=== PATIENT | male | born 1990 | race Caucasian/White ===

== ENCOUNTER 2022-05-13 13:59 | Emergency (ER) | payer SELFPAY | END 2022-05-13 16:35 | disposition home or self-care (01) | LOC: MW.ED 13:59 | DX: T81.89XA Other complications of procedures, not elsewhere classified, initial encounter (principal); Z79.899 Other long term (current) drug therapy; Z88.1 Allergy status to other antibiotic agents | CPT/HCPCS: 99283 ==

== ENCOUNTER 2022-08-23 23:13 | Emergency (ER) | payer OTHER, SELFPAY | END 2022-08-24 00:29 | LOC: MW.ED 23:13 | DX: Z02.89 Encounter for other administrative examinations (principal); Z88.1 Allergy status to other antibiotic agents; Z79.899 Other long term (current) drug therapy | CPT/HCPCS: 99283 ==

== ENCOUNTER 2024-01-30 00:30 | Emergency (ER) | payer MEDICAID ==
[2024-01-30] MEDS: Sodium Chloride 0.9% 1,000 ML IV ONE (00:50)
[2024-01-30 00:54] LABS: BASOPHILS ABSOLUTE AUTO 0.02 K/uL (0.00-0.20); BASOPHILS PERCENT AUTO 0.2 % (0.0-1.0); EOSINOPHILS ABSOLUTE AUTO 0.03 K/uL (0.00-0.45); EOSINOPHILS PERCENT AUTO 0.3 % (0.0-6.0); HEMATOCRIT 38.5 % (42.0-52.0); HEMOGLOBIN 13.4 g/dL (14.0-18.0); IMMATURE GRAN ABSOLUTE AUTO 0.02 K/uL (0.00-0.05); IMMATURE GRAN PERCENT AUTO 0.2 % (0.0-0.4); LYMPHOCYTES ABSOLUTE AUTO 1.75 K/uL (1.00-4.80); LYMPHOCYTES PERCENT AUTO 19.5 % (24.0-44.0); MEAN CORPUSCULAR HEMOGLOBIN 28.5 pg (28.0-32.0); MEAN CORPUSCULAR HGB CONC 34.8 g/dL (32.0-36.0); MEAN CORPUSCULAR VOLUME 81.9 fL (83.0-99.0); MEAN PLATELET VOLUME 8.7 fL (9.4-12.4); MONOCYTES ABSOLUTE AUTO 0.56 K/uL (0.00-0.80); MONOCYTES PERCENT AUTO 6.2 % (0.0-8.0); NEUTROPHILS ABSOLUTE AUTO 6.59 K/uL (1.80-7.70); NEUTROPHILS PERCENT AUTO 73.6 % (41.0-71.0); PLATELET COUNT,PLT 241 K/uL (150-400); WHITE BLOOD CELL COUNT,WBC 8.97 K/uL (3.9-11.3)
[2024-01-30 01:07] LABS: INR 0.98 (0.86-1.11); PTT,PARTIAL THROMBOPLSTIN TIME 30.7 SEC (23.9-30.7)
[2024-01-30 01:26] LABS: ACETAMINOPHEN < 2.0 ug/mL; ALANINE AMINOTRANSFERASE,ALT 81 IU/L (14-63); ALBUMIN 3.4 g/dL (3.4-5.0); ALKALINE PHOSPHATASE 107 U/L (46-116); ASPARTATE AMNIOTRANSFERASE,AST 74 IU/L (15-37); BILIRUBIN TOTAL 1.3 mg/dL (0.2-1.0); BLOOD UREA NITROGEN,BUN 12 mg/dL (7.0-18.0); CALCIUM 8.7 mg/dL (8.5-10.1); CARBON DIOXIDE,CO2 27.9 mmol/L (21.0-32.0); CHLORIDE,CL 99 mmol/L (98-107); CREATININE 0.9 mg/dL (0.8-1.3); EST CRCL DRUG DOSING (CG) 122.79 mL/min; ETHANOL BLOOD MEDICAL <3 mg/dL; GLUCOSE RANDOM 121 mg/dL (74-106); LIPASE 49 U/L (16-77); MAGNESIUM 1.8 mg/dL (1.8-2.4); POTASSIUM,K 3.3 mmol/L (3.5-5.1); PROTEIN TOTAL,TP 6.8 g/dL (6.4-8.2); SALICYLATE <0.2 mg/dL (0.0-20.0); SODIUM,NA 137 mmol/L (136-148); TSH ULTRASENSITIVE 2.81 uIU/mL (0.36-3.74)
[2024-01-30 01:38] LABS: ESTIMATED GFR 117 mL/min (>60)
[2024-01-30] MEDS ORDERED: Acetylcysteine 5,000 MG in Dextrose 5% in Water 500 ML IV ONE (01:43)
[2024-01-30 02:09] LABS: BILIRUBIN,URINE NEGATIVE (NEGATIVE); GLUCOSE,URINE NEGATIVE (NEGATIVE); KETONES,URINE TRACE mg/dL (NEGATIVE); LEUKOCYTE ESTERASE,URINE NEGATIVE (NEGATIVE); NITRITE,URINE NEGATIVE (NEGATIVE); OCCULT BLOOD,URINE NEGATIVE (NEGATIVE); PH,URINE 6.5 (5.0-8.0); PROTEIN,URINE NEGATIVE (NEGATIVE); UROBILINOGEN,URINE 0.2 EU/dL (<2.0)
[2024-01-30] MEDS: Acetylcysteine 15,000 MG in Dextrose 5% in Water 200 ML IV STA ×2 (02:12→02:57)
[2024-01-30 02:14] LABS: APPEARANCE,URINE CLEAR; COLOR,URINE DARK YELLOW
[2024-01-30 02:19] LABS: AMPHETAMINES SCREEN, URINE NEGATIVE (CUTOFF=500); BARBITURATE SCREEN,URINE NEGATIVE (CUTOFF=200); BENZODIAZEPINES SCREEN,URINE NEGATIVE (CUTOFF=150); BUPRENORPHINE SCREEN,URINE NEGATIVE (CUTOFF=10); METHADONE SCREEN, URINE NEGATIVE (CUTOFF=200); METHAMPHETAMINES SCREEN, URINE NEGATIVE (CUTOFF=500); OXYCODONE SCREEN,URINE PRESUMPTIVE POSITIVE (CUT0FF=100); PCP SCREEN,URINE NEGATIVE (CUTOFF=25); THC SCREEN,URINE 20 NG/ML PRESUMPTIVE POSITIVE (CUTOFF=50)
[2024-01-30] MEDS: Acetylcysteine 5,000 MG in Dextrose 5% in Water 500 ML IV ONE (03:24)
[2024-01-30] MEDS: Diazepam 5 MG Tab PO ONE (05:50)
[2024-01-30 06:22] LABS: INR 1.09 (0.86-1.11); PTT,PARTIAL THROMBOPLSTIN TIME 30.1 SEC (23.9-30.7)
[2024-01-30 06:33] LABS: A/G RATIO 0.9 (0.9-1.6); ACETAMINOPHEN < 2.0 ug/mL; ALANINE AMINOTRANSFERASE,ALT 83 IU/L (14-63); ALBUMIN 2.9 g/dL (3.4-5.0); ALKALINE PHOSPHATASE 91 U/L (46-116); ASPARTATE AMNIOTRANSFERASE,AST 62 IU/L (15-37); BILIRUBIN TOTAL 1.2 mg/dL (0.2-1.0); BLOOD UREA NITROGEN,BUN 9 mg/dL (7.0-18.0); CALCIUM 8.1 mg/dL (8.5-10.1); CARBON DIOXIDE,CO2 29.6 mmol/L (21.0-32.0); CHLORIDE,CL 101 mmol/L (98-107); CREATININE 0.9 mg/dL (0.8-1.3); EST CRCL DRUG DOSING (CG) 122.79 mL/min; ESTIMATED GFR 117 mL/min (>60); GLUCOSE RANDOM 118 mg/dL (74-106); POTASSIUM,K 3.4 mmol/L (3.5-5.1); PROTEIN TOTAL,TP 6.3 g/dL (6.4-8.2); SALICYLATE <0.2 mg/dL (0.0-20.0); SODIUM,NA 142 mmol/L (136-148)
== END 2024-01-30 06:55 | disposition home or self-care (01) ==
LOC: MW.ED 00:30
DX: T39.1X1A Poisoning by 4-Aminophenol derivatives, accidental (unintentional), initial encounter (principal); F10.230 Alcohol dependence with withdrawal, uncomplicated; I10 Essential (primary) hypertension; Z88.1 Allergy status to other antibiotic agents; Z75.8 Other problems related to medical facilities and other health care
CPT/HCPCS: 36415; 80053; 80143; 80179; 80305; 80307; 81003; 83690; 83735; 84443; 85025; 85610; 85730; 93005; 96361; 96365; 96366; 96375; 96376; 99284; A9270; J0132; J3360; J7030; J7060; 93010

== ENCOUNTER 2024-02-18 17:35 | Emergency (ER) | payer MEDICAID ==
[2024-02-18] MEDS: Ondansetron 4 MG/2 ML SDV IVPUSH STA (17:55)
[2024-02-18] MEDS: Sodium Chloride 0.9% 2.5 ML Syringe FLUSH PRN (17:55)
[2024-02-18] MEDS: Sodium Chloride 0.9% 1,000 ML IV STA ×2 (17:55→19:42)
[2024-02-18] MEDS: Sodium Chloride 0.9% 10 ML Syringe FLUSH PRN (17:55)
[2024-02-18 17:57] LABS: BASOPHILS ABSOLUTE AUTO 0.02 K/uL (0.00-0.20); BASOPHILS PERCENT AUTO 0.3 % (0.0-1.0); EOSINOPHILS ABSOLUTE AUTO 0.09 K/uL (0.00-0.45); EOSINOPHILS PERCENT AUTO 1.6 % (0.0-6.0); HEMATOCRIT 47.1 % (42.0-52.0); HEMOGLOBIN 16.4 g/dL (14.0-18.0); IMMATURE GRAN ABSOLUTE AUTO 0.01 K/uL (0.00-0.05); IMMATURE GRAN PERCENT AUTO 0.2 % (0.0-0.4); LYMPHOCYTES ABSOLUTE AUTO 2.17 K/uL (1.00-4.80); LYMPHOCYTES PERCENT AUTO 37.4 % (24.0-44.0); MEAN CORPUSCULAR HEMOGLOBIN 28.4 pg (28.0-32.0); MEAN CORPUSCULAR HGB CONC 34.8 g/dL (32.0-36.0); MEAN CORPUSCULAR VOLUME 81.6 fL (83.0-99.0); MEAN PLATELET VOLUME 8.3 fL (9.4-12.4); MONOCYTES ABSOLUTE AUTO 0.84 K/uL (0.00-0.80); MONOCYTES PERCENT AUTO 14.5 % (0.0-8.0); NEUTROPHILS ABSOLUTE AUTO 2.67 K/uL (1.80-7.70); PLATELET COUNT,PLT 351 K/uL (150-400); RED BLOOD CELL COUNT 5.77 M/uL (4.52-5.90)
[2024-02-18 18:12] LABS: INR 1.02 (0.86-1.11); PTT,PARTIAL THROMBOPLSTIN TIME 27.8 SEC (23.9-30.7)
[2024-02-18 18:21] LABS: MAGNESIUM 2.1 mg/dL (1.8-2.4)
[2024-02-18 18:26] LABS: A/G RATIO 0.9 (0.9-1.6); ALBUMIN 3.6 g/dL (3.4-5.0); BILIRUBIN TOTAL 0.6 mg/dL (0.2-1.0); CALCIUM 8.2 mg/dL (8.5-10.1); CREATININE 1.1 mg/dL (0.8-1.3); EST CRCL DRUG DOSING (CG) 100.47 mL/min; POTASSIUM,K 4.4 mmol/L (3.5-5.1); PROTEIN TOTAL,TP 7.5 g/dL (6.4-8.2)
[2024-02-18] MEDS: LORazepam 1 MG Tab PO STA (18:52)
[2024-02-18 19:15] LABS: APPEARANCE,URINE HAZY; BILIRUBIN,URINE NEGATIVE (NEGATIVE); COLOR,URINE YELLOW; GLUCOSE,URINE NEGATIVE (NEGATIVE); KETONES,URINE 15 mg/dL (NEGATIVE); LEUKOCYTE ESTERASE,URINE NEGATIVE (NEGATIVE); NITRITE,URINE NEGATIVE (NEGATIVE); OCCULT BLOOD,URINE SMALL (NEGATIVE); PROTEIN,URINE 100 mg/dL (NEGATIVE)
[2024-02-18 19:21] LABS: BACTERIA,URINE FEW (NEGATIVE); EPITHELIAL CELLS,URINE NOT SEEN (NONE-FEW); MUCUS,URINE LIGHT (NONE-MOD); WBC,URINE 0-1 (0-5/HPF)
[2024-02-18 19:29] LABS: AMPHETAMINES SCREEN, URINE NEGATIVE (CUTOFF=500); BARBITURATE SCREEN,URINE NEGATIVE (CUTOFF=200); BENZODIAZEPINES SCREEN,URINE PRESUMPTIVE POSITIVE (CUTOFF=150); BUPRENORPHINE SCREEN,URINE NEGATIVE (CUTOFF=10); METHADONE SCREEN, URINE NEGATIVE (CUTOFF=200); METHAMPHETAMINES SCREEN, URINE NEGATIVE (CUTOFF=500); OXYCODONE SCREEN,URINE NEGATIVE (CUT0FF=100); PCP SCREEN,URINE NEGATIVE (CUTOFF=25); THC SCREEN,URINE 20 NG/ML PRESUMPTIVE POSITIVE (CUTOFF=50)
[2024-02-18] MEDS: Diazepam 2 MG Tab PO STA (20:19)
== END 2024-02-18 21:32 | disposition home or self-care (01) ==
LOC: MW.ED 17:35
DX: F10.139 Alcohol abuse with withdrawal, unspecified (principal); I10 Essential (primary) hypertension; Z75.8 Other problems related to medical facilities and other health care; Z88.1 Allergy status to other antibiotic agents; Z88.8 Allergy status to other drugs, medicaments and biological substances; Z79.899 Other long term (current) drug therapy; Z86.16 Personal history of COVID-19; Z87.891 Personal history of nicotine dependence
CPT/HCPCS: 36415; 80053; 80305; 80307; 81001; 83690; 83735; 85025; 85610; 85730; 96361; 96374; 99284; A9270; J2405; J3490; J7030

== ENCOUNTER 2024-02-23 22:26 | Emergency (ER) | payer MEDICAID | END 2024-02-23 23:27 | LOC: MW.ED 22:26 | DX: I10 Essential (primary) hypertension (principal); Z86.16 Personal history of COVID-19; Z79.899 Other long term (current) drug therapy; Z88.1 Allergy status to other antibiotic agents; Z75.8 Other problems related to medical facilities and other health care | CPT/HCPCS: 99283 ==

== ENCOUNTER 2024-04-11 16:02 | Emergency (ER) | payer MEDICAID ==
[2024-04-11] MEDS: Diphtheria,Pertussis(Acell),Tetanus Vaccine 0.5 ML Syringe IM ONE (16:27)
[2024-04-11] MEDS: Sodium Chloride 0.9% 1,000 ML IV ONE (16:39)
[2024-04-11] MEDS: LORazepam 2 MG/ML SDV IVPUSH ONE (16:48)
[2024-04-11 16:55] LABS: BASOPHILS ABSOLUTE AUTO 0.02 K/uL (0.00-0.20); BASOPHILS PERCENT AUTO 0.4 % (0.0-1.0); EOSINOPHILS ABSOLUTE AUTO 0.05 K/uL (0.00-0.45); EOSINOPHILS PERCENT AUTO 0.9 % (0.0-6.0); HEMOGLOBIN 13.5 g/dL (14.0-18.0); IMMATURE GRAN ABSOLUTE AUTO 0.01 K/uL (0.00-0.05); IMMATURE GRAN PERCENT AUTO 0.2 % (0.0-0.4); LYMPHOCYTES ABSOLUTE AUTO 1.46 K/uL (1.00-4.80); LYMPHOCYTES PERCENT AUTO 25.6 % (24.0-44.0); MEAN CORPUSCULAR HEMOGLOBIN 29.3 pg (28.0-32.0); MEAN CORPUSCULAR HGB CONC 34.6 g/dL (32.0-36.0); MEAN CORPUSCULAR VOLUME 84.8 fL (83.0-99.0); MEAN PLATELET VOLUME 9.2 fL (9.4-12.4); MONOCYTES ABSOLUTE AUTO 0.57 K/uL (0.00-0.80); NEUTROPHILS PERCENT AUTO 62.9 % (41.0-71.0); PLATELET COUNT,PLT 296 K/uL (150-400); WHITE BLOOD CELL COUNT,WBC 5.71 K/uL (3.9-11.3)
[2024-04-11 17:29] LABS: A/G RATIO 1.2 (0.9-1.6); ALBUMIN 3.8 g/dL (3.4-5.0); BILIRUBIN TOTAL 0.3 mg/dL (0.2-1.0); CALCIUM 9.1 mg/dL (8.5-10.1); CARBON DIOXIDE,CO2 23.8 mmol/L (21.0-32.0); EST CRCL DRUG DOSING (CG) 110.51 mL/min; POTASSIUM,K 3.3 mmol/L (3.5-5.1); PROTEIN TOTAL,TP 7.1 g/dL (6.4-8.2)
[2024-04-11 17:49] LABS: LACTIC ACID 1.7 mmol/L (0.4-2.0)
== END 2024-04-11 18:22 | disposition home or self-care (01) ==
LOC: MW.ED 16:02
DX: L03.114 Cellulitis of left upper limb (principal); F10.239 Alcohol dependence with withdrawal, unspecified; I10 Essential (primary) hypertension; Z79.899 Other long term (current) drug therapy; Z75.8 Other problems related to medical facilities and other health care; Z88.1 Allergy status to other antibiotic agents; Z23 Encounter for immunization
CPT/HCPCS: 36415; 73090; 80053; 83605; 85025; 87040; 90471; 90715; 96361; 96374; 99285; J2060; J7030; 99284

== ENCOUNTER 2024-05-04 10:04 | Inpatient (IN) | payer MEDICAID ==
[2024-05-04] MEDS: PHENobarbitaL sodium 260 MG in Sodium Chloride 0.9% 100 ML IV ONE (10:32)
[2024-05-04 10:34] LABS: BASOPHILS ABSOLUTE AUTO 0.02 K/uL (0.00-0.20); BASOPHILS PERCENT AUTO 0.2 % (0.0-1.0); EOSINOPHILS ABSOLUTE AUTO 0.01 K/uL (0.00-0.45); EOSINOPHILS PERCENT AUTO 0.1 % (0.0-6.0); HEMATOCRIT 43.1 % (42.0-52.0); HEMOGLOBIN 15.1 g/dL (14.0-18.0); IMMATURE GRAN ABSOLUTE AUTO 0.03 K/uL (0.00-0.05); IMMATURE GRAN PERCENT AUTO 0.4 % (0.0-0.4); LYMPHOCYTES ABSOLUTE AUTO 0.96 K/uL (1.00-4.80); LYMPHOCYTES PERCENT AUTO 11.8 % (24.0-44.0); MEAN CORPUSCULAR HEMOGLOBIN 28.8 pg (28.0-32.0); MEAN CORPUSCULAR VOLUME 82.1 fL (83.0-99.0); MONOCYTES ABSOLUTE AUTO 0.23 K/uL (0.00-0.80); MONOCYTES PERCENT AUTO 2.8 % (0.0-8.0); NEUTROPHILS ABSOLUTE AUTO 6.87 K/uL (1.80-7.70); NEUTROPHILS PERCENT AUTO 84.7 % (41.0-71.0); PLATELET COUNT,PLT 360 K/uL (150-400); RED BLOOD CELL COUNT 5.25 M/uL (4.52-5.90); WHITE BLOOD CELL COUNT,WBC 8.12 K/uL (3.9-11.3)
[2024-05-04] MEDS: Sodium Chloride 0.9% 1,000 ML IV ONE ×2 (10:47→12:03)
[2024-05-04] MEDS: Sodium Chloride 0.9% 10 ML Syringe FLUSH PRN (10:49)
[2024-05-04] MEDS: Sodium Chloride 0.9% 2.5 ML Syringe FLUSH PRN (10:49)
[2024-05-04 10:50] LABS: INR 1.01 (0.86-1.11)
[2024-05-04 11:08] LABS: A/G RATIO 1.2 (0.9-1.6); ALANINE AMINOTRANSFERASE,ALT 72 IU/L (14-63); ALBUMIN 4.2 g/dL (3.4-5.0); ALKALINE PHOSPHATASE 121 U/L (46-116); ASPARTATE AMNIOTRANSFERASE,AST 77 IU/L (15-37); BLOOD UREA NITROGEN,BUN 12 mg/dL (7.0-18.0); CALCIUM 9.2 mg/dL (8.5-10.1); CARBON DIOXIDE,CO2 15.1 mmol/L (21.0-32.0); CHLORIDE,CL 94 mmol/L (98-107); CREATININE 1.7 mg/dL (0.8-1.3); EST CRCL DRUG DOSING (CG) 65.01 mL/min; GLUCOSE RANDOM 344 mg/dL (74-106); POTASSIUM,K 3.5 mmol/L (3.5-5.1); PROTEIN TOTAL,TP 7.8 g/dL (6.4-8.2); SODIUM,NA 130 mmol/L (136-148); TSH ULTRASENSITIVE 0.87 uIU/mL (0.36-3.74)
[2024-05-04 11:10] LABS: ESTIMATED GFR 55 mL/min (>60); ETHANOL BLOOD MEDICAL < 3.0 mg/dL
[2024-05-04] MEDS ORDERED: PHENobarbitaL sodium 130 MG in Sodium Chloride 0.9% 100 ML IV ONE (11:47)
[2024-05-04] MEDS: PHENobarbital Sodium 130 MG/ML SDV IVPUSH PRN (12:09)
[2024-05-04] MEDS ORDERED: Ondansetron 4 MG Tab.DIS PO PRN (13:06)
[2024-05-04] MEDS ORDERED: PHENobarbital 32.4 MG Tab PO PRN ×2 (13:17)
[2024-05-04] MEDS ORDERED: PHENobarbital Sodium 130 MG/ML SDV IVPUSH PRN (13:21)
[2024-05-04] MEDS: Lisinopril 10 MG Tab PO ONE (13:31)
[2024-05-04] MEDS: Non-Formulary Medication 1 Each (Lisinopril [Lisinopril] 40 MG Tablet) PO SCH (13:36)
[2024-05-04] MEDS: PHENobarbitaL sodium 130 MG in Sodium Chloride 0.9% 100 ML IV ONE (13:36)
[2024-05-04 14:09] LABS: MAGNESIUM 2.7 mg/dL (1.8-2.4); PHOSPHORUS 2.1 mg/dL (2.6-4.7)
[2024-05-04] MEDS: Folic Acid 1 MG Tab PO SCH (14:16)
[2024-05-04] MEDS: Sodium Chloride 0.9% 1,000 ML IV SCH (14:16)
[2024-05-04] MEDS: Acetaminophen 325 MG Tab PO PRN (14:17)
[2024-05-04] MEDS: PHENobarbital 32.4 MG Tab PO PRN (15:28)
[2024-05-04] MEDS ORDERED: Metoprolol Tartrate 5 MG/5 ML SDV IVPUSH PRN (15:40)
[2024-05-04] MEDS: Heparin Sodium 5,000 Units/ML Vial SUBCUT SCH (16:02)
[2024-05-04] MEDS: Labetalol 100 MG/20 ML MDV IVPUSH PRN (17:04)
[2024-05-04] MEDS: Phosphorus #1 250 MG Tab PO SCH (17:49)
[2024-05-04 18:04] LABS: AMPHETAMINES SCREEN, URINE NEGATIVE (CUTOFF=500); BARBITURATE SCREEN,URINE PRESUMPTIVE POSITIVE (CUTOFF=200); BENZODIAZEPINES SCREEN,URINE PRESUMPTIVE POSITIVE (CUTOFF=150); BUPRENORPHINE SCREEN,URINE NEGATIVE (CUTOFF=10); METHADONE SCREEN, URINE NEGATIVE (CUTOFF=200); METHAMPHETAMINES SCREEN, URINE NEGATIVE (CUTOFF=500); OXYCODONE SCREEN,URINE NEGATIVE (CUT0FF=100); PCP SCREEN,URINE NEGATIVE (CUTOFF=25); THC SCREEN,URINE 20 NG/ML PRESUMPTIVE POSITIVE (CUTOFF=50)
[2024-05-04] MEDS: hydrALAZINE 20 MG/ML SDV IVPUSH PRN (20:28)
[2024-05-04] MEDS: Thiamine 100 MG Tab PO SCH (20:28)
[2024-05-04] MEDS: Melatonin 3 MG Tab PO PRN (20:28)
[2024-05-05 06:15] LABS: BASOPHILS ABSOLUTE AUTO 0.03 K/uL (0.00-0.20); BASOPHILS PERCENT AUTO 0.6 % (0.0-1.0); EOSINOPHILS PERCENT AUTO 2.1 % (0.0-6.0); HEMATOCRIT 37.7 % (42.0-52.0); HEMOGLOBIN 12.9 g/dL (14.0-18.0); IMMATURE GRAN ABSOLUTE AUTO 0.02 K/uL (0.00-0.05); IMMATURE GRAN PERCENT AUTO 0.4 % (0.0-0.4); LYMPHOCYTES ABSOLUTE AUTO 1.28 K/uL (1.00-4.80); LYMPHOCYTES PERCENT AUTO 27.2 % (24.0-44.0); MEAN CORPUSCULAR HEMOGLOBIN 28.8 pg (28.0-32.0); MEAN CORPUSCULAR HGB CONC 34.2 g/dL (32.0-36.0); MEAN CORPUSCULAR VOLUME 84.2 fL (83.0-99.0); MEAN PLATELET VOLUME 9.1 fL (9.4-12.4); MONOCYTES PERCENT AUTO 6.4 % (0.0-8.0); NEUTROPHILS ABSOLUTE AUTO 2.97 K/uL (1.80-7.70); NEUTROPHILS PERCENT AUTO 63.3 % (41.0-71.0); PLATELET COUNT,PLT 266 K/uL (150-400); RED BLOOD CELL COUNT 4.48 M/uL (4.52-5.90)
[2024-05-05 06:48] LABS: A/G RATIO 1.1 (0.9-1.6); ALBUMIN 3.3 g/dL (3.4-5.0); BILIRUBIN TOTAL 1.5 mg/dL (0.2-1.0); CALCIUM 8.4 mg/dL (8.5-10.1); CARBON DIOXIDE,CO2 23.9 mmol/L (21.0-32.0); CREATININE 0.9 mg/dL (0.8-1.3); EST CRCL DRUG DOSING (CG) 123.09 mL/min; MAGNESIUM 2.1 mg/dL (1.8-2.4); PHOSPHORUS 3.8 mg/dL (2.6-4.7); POTASSIUM,K 2.9 mmol/L (3.5-5.1); PROTEIN TOTAL,TP 6.4 g/dL (6.4-8.2)
[2024-05-05] MEDS: Potassium Chloride 20 MEQ Tab.ER PO ONE (08:11)
[2024-05-05] MEDS: Lisinopril 10 MG Tab PO SCH (08:11)
[2024-05-05] MEDS: amLODIPine 5 MG Tab PO ONE (09:20)
[2024-05-06] MEDS: Acetaminophen/oxyCODONE 325-5 MG Tab PO PRN (00:17)
[2024-05-06 06:45] LABS: BASOPHILS ABSOLUTE AUTO 0.04 K/uL (0.00-0.20); BASOPHILS PERCENT AUTO 0.9 % (0.0-1.0); EOSINOPHILS ABSOLUTE AUTO 0.11 K/uL (0.00-0.45); EOSINOPHILS PERCENT AUTO 2.4 % (0.0-6.0); HEMATOCRIT 37.9 % (42.0-52.0); HEMOGLOBIN 12.7 g/dL (14.0-18.0); IMMATURE GRAN ABSOLUTE AUTO 0.01 K/uL (0.00-0.05); IMMATURE GRAN PERCENT AUTO 0.2 % (0.0-0.4); LYMPHOCYTES PERCENT AUTO 32.7 % (24.0-44.0); MEAN CORPUSCULAR HEMOGLOBIN 28.5 pg (28.0-32.0); MEAN CORPUSCULAR HGB CONC 33.5 g/dL (32.0-36.0); MEAN PLATELET VOLUME 8.9 fL (9.4-12.4); MONOCYTES ABSOLUTE AUTO 0.33 K/uL (0.00-0.80); MONOCYTES PERCENT AUTO 7.2 % (0.0-8.0); NEUTROPHILS PERCENT AUTO 56.6 % (41.0-71.0); PLATELET COUNT,PLT 274 K/uL (150-400); RED BLOOD CELL COUNT 4.46 M/uL (4.52-5.90); WHITE BLOOD CELL COUNT,WBC 4.59 K/uL (3.9-11.3)
[2024-05-06 07:13] LABS: ALBUMIN 3.5 g/dL (3.4-5.0); BILIRUBIN TOTAL 0.8 mg/dL (0.2-1.0); CALCIUM 8.9 mg/dL (8.5-10.1); CARBON DIOXIDE,CO2 30.4 mmol/L (21.0-32.0); EST CRCL DRUG DOSING (CG) 110.79 mL/min; PROTEIN TOTAL,TP 6.9 g/dL (6.4-8.2)
== END 2024-05-06 12:55 | disposition home or self-care (01) | DRG 897 ==
LOC: MW.ED 10:04 → MW.ICU 12:25 → MW.MS 05-05 16:21
PROVIDERS: ADMIT Family Medicine; ATTEND Family Medicine
DX: F10.239 Alcohol dependence with withdrawal, unspecified (principal); N17.9 Acute kidney failure, unspecified; R56.9 Unspecified convulsions; I10 Essential (primary) hypertension; F41.9 Anxiety disorder, unspecified; S01.512A Laceration without foreign body of oral cavity, initial encounter; E87.6 Hypokalemia; Z88.1 Allergy status to other antibiotic agents; Z79.899 Other long term (current) drug therapy; X58.XXXA Exposure to other specified factors, initial encounter; Y90.8 Blood alcohol level of 240 mg/100 ml or more
CPT/HCPCS: 36415; 70450; 70450-26; 71045; 71045-26; 80053; 80305-QW; 80307; 83735; 84100; 84443; 84484; 85025; 85610; 85730; 87040; 93005; 93010; 96361; 96365; 99223; 99232; 99239; 99284; 99285-25; 99291; A9270-GY; J0360; J1644; J1921; J2560; J3490; J7030

== ENCOUNTER 2024-05-16 14:54 | Emergency (ER) | payer MEDICAID ==
[2024-05-16] MEDS ORDERED: Sodium Chloride 0.9% 10 ML Syringe FLUSH PRN (15:28)
[2024-05-16] MEDS ORDERED: Sodium Chloride 0.9% 20 ML SDV IV PRN (15:28)
[2024-05-16] MEDS ORDERED: Sodium Chloride 0.9% 2.5 ML Syringe FLUSH PRN (15:28)
[2024-05-16] MEDS: Lisinopril 10 MG Tab PO ONE (15:45)
[2024-05-16] MEDS: Sodium Chloride 0.9% 1,000 ML IV ONE (15:47)
[2024-05-16] MEDS: amLODIPine 5 MG Tab PO ONE (15:48)
[2024-05-16] MEDS: Labetalol 100 MG/20 ML MDV IVPUSH ONE (15:49)
[2024-05-16 16:05] LABS: BASOPHILS ABSOLUTE AUTO 0.08 K/uL (0.00-0.20); BASOPHILS PERCENT AUTO 1.5 % (0.0-1.0); EOSINOPHILS ABSOLUTE AUTO 0.14 K/uL (0.00-0.45); EOSINOPHILS PERCENT AUTO 2.6 % (0.0-6.0); HEMATOCRIT 41.3 % (42.0-52.0); HEMOGLOBIN 13.8 g/dL (14.0-18.0); IMMATURE GRAN ABSOLUTE AUTO 0.01 K/uL (0.00-0.05); IMMATURE GRAN PERCENT AUTO 0.2 % (0.0-0.4); LYMPHOCYTES ABSOLUTE AUTO 1.87 K/uL (1.00-4.80); LYMPHOCYTES PERCENT AUTO 35.3 % (24.0-44.0); MEAN CORPUSCULAR HEMOGLOBIN 28.6 pg (28.0-32.0); MEAN CORPUSCULAR HGB CONC 33.4 g/dL (32.0-36.0); MEAN CORPUSCULAR VOLUME 85.5 fL (83.0-99.0); MEAN PLATELET VOLUME 8.3 fL (9.4-12.4); MONOCYTES ABSOLUTE AUTO 0.53 K/uL (0.00-0.80); NEUTROPHILS ABSOLUTE AUTO 2.67 K/uL (1.80-7.70); NEUTROPHILS PERCENT AUTO 50.4 % (41.0-71.0); PLATELET COUNT,PLT 478 K/uL (150-400); RED BLOOD CELL COUNT 4.83 M/uL (4.52-5.90)
[2024-05-16 16:17] LABS: AMPHETAMINES SCREEN, URINE NEGATIVE (CUTOFF=500); BARBITURATE SCREEN,URINE PRESUMPTIVE POSITIVE (CUTOFF=200); BENZODIAZEPINES SCREEN,URINE PRESUMPTIVE POSITIVE (CUTOFF=150); BUPRENORPHINE SCREEN,URINE NEGATIVE (CUTOFF=10); METHADONE SCREEN, URINE NEGATIVE (CUTOFF=200); METHAMPHETAMINES SCREEN, URINE NEGATIVE (CUTOFF=500); OXYCODONE SCREEN,URINE NEGATIVE (CUT0FF=100); PCP SCREEN,URINE NEGATIVE (CUTOFF=25); THC SCREEN,URINE 20 NG/ML PRESUMPTIVE POSITIVE (CUTOFF=50)
[2024-05-16 16:43] LABS: A/G RATIO 1.1 (0.9-1.6); ALBUMIN 4.2 g/dL (3.4-5.0); BILIRUBIN TOTAL 0.2 mg/dL (0.2-1.0); CALCIUM 7.9 mg/dL (8.5-10.1); CARBON DIOXIDE,CO2 26.2 mmol/L (21.0-32.0); EST CRCL DRUG DOSING (CG) 110.51 mL/min; MAGNESIUM 2.5 mg/dL (1.8-2.4); POTASSIUM,K 4.4 mmol/L (3.5-5.1)
[2024-05-16] MEDS: Folic Acid 1 MG Tab PO ONE (17:14)
[2024-05-16] MEDS: Thiamine 100 MG Tab PO ONE (17:14)
[2024-05-16] MEDS: Multivitamin Tab PO ONE (17:14)
[2024-05-16] MEDS: cloNIDine 0.1 MG Tab PO ONE (17:14)
== END 2024-05-16 17:27 ==
LOC: MW.ED 14:54
DX: F10.120 Alcohol abuse with intoxication, uncomplicated (principal); R00.0 Tachycardia, unspecified; F12.90 Cannabis use, unspecified, uncomplicated; I10 Essential (primary) hypertension; Z86.59 Personal history of other mental and behavioral disorders; Y90.8 Blood alcohol level of 240 mg/100 ml or more; Z79.899 Other long term (current) drug therapy; Z88.1 Allergy status to other antibiotic agents; Z91.198 Patient's noncompliance with other medical treatment and regimen for other reason
CPT/HCPCS: 36415; 80053; 80305; 80307; 83735; 85025; 93005; 96360; 99284; A9270; J1921; J7030